=== PATIENT | male | born 1985 | race Caucasian/White ===

== ENCOUNTER 2016-11-29 18:48 | Emergency (ER) | payer OTHER ==
--- NOTE | 2016-11-29 19:54 | EDPHY ---
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 This on the volar aspect. Bleeding has been maintained with mild pressure. No sensory or motor deficits. No injury to the nail. Tetanus was last updated less than 2 years ago. [id number] pain at rest. No radiating pain. Improved with rest. No bleeding disorders. No gross contaminant.No other associated complaints or modifying factors. PRIOR ORTHO INJURIES: None ESTABLISHED ORTHOPEDIST: None REVIEW OF SYSTEMS: Ten systems reviewed and are negative unless otherwise noted in the HPI EXAMINATION General Appearance: Alert, no distress Head: normocephalic, atraumatic Eyes: Pupils equal and round, no conjunctival pallor or injection Respiratory: No dyspnea or retractions. No distress Cardiovascular: Pulses normal throughout. Symmetric radial pulses are 2+. Brisk cap refill Gastrointestinal: No distention Neurological: A&O, sensory symmetric, strength symmetric Skin: Warm and dry . There is a 2 cm laceration to the right index finger, volar aspect over the distal phalanx. Mild bleeding noted. No foreign body. Neurovascular and intact with brisk cap refill. Extremities: Tenderness over the right index finger laceration. There is full extensor and flexor retained, including superficial and profundus. No other abnormalities. MDM: 7:10pm Acute laceration to the right index finger tip. There is no involvement of the nail. There is no foreign body. There is no involvement of the tendon by examination and by range of motion. The digital block has been applied. We will irrigate and closed the wound with suture repair. He is resting comfortably in no acute distress. 7:50 p.m. wound has been anesthetized, irrigated and closed without complication. Wound care discussed including bacitracin daily, keep the wound covered at all times until sutures are removed. No submersion of the wound. Return for signs or symptoms of infection as discussed. Discharged home and return here in 7-10 days for suture repair. PROCEDURE: Digital Block Consent: Verbal Location: right index finger Anesthesia: 1% lidocaine plain, 0.25% Marcaine plain, 7 mLs Description: aseptic technique. After the base of the index finger metacarpal was cleaned with chlorhexidine, 7 mL of anesthesia as listed above or diffuse. Good anesthesia obtained. No bleeding. No complications. PROCEDURE: Finger laceration Consent: verbal Location: right index, distal phalanx, volar Length of repair: 1.5 cm Complexity: simple Layer involvement: single Anesthesia: digital block as above Irrigation: extensive Debridement: none Procedure description: after good anesthesia and irrigation, the wound was Explored and closed with 4, simple interrupted sutures. no foreign body in the wound bed. Good approximation of the wound margins. Good hemostasis. Suture/Staple material: 5-0 Prolene Wound care: routine as discussed Suture/Staple removal: return here in 7-10 days for suture removal. ED Precautions: Worsening pain. Erythema, edema, cyanosis, pallor, paresthesia or anesthesia. SUPERVISION: This patient was independently evaluated without the aide of supervising physician. - History Smoking Status: Never smoked - Objective Vital Signs: Initial Vital Signs Temperature (C) 97.9 F 11/29/16 18:50 Heart Rate 84 11/29/16 18:50 Respiratory Rate 16 11/29/16 18:50 Blood Pressure 143/68 H 11/29/16 18:50 O2 Sat (%) 98 11/29/16 18:50 Allergies/Adverse Reactions: No Known Allergies Allergy (Unverified 09/01/10 23:08) Home Medications: Medication Instructions Recorded LORAZEPAM 06/26/15 Cephalexin [Keflex (*)] 500 mg PO TID #21 cap 11/29/16 Departure - Departure Disposition: Home, Routine, Self-Care Clinical Impression: Laceration of index finger of right hand without complication Condition: Good Instructions: Laceration (ED), Care For Your Stitches (ED) Additional Instructions: Wound care as discussed. Follow up here in 7-10 days for suture removal. Return sooner for signs or symptoms of infection. Prescriptions: Cephalexin [Keflex (*)] 500 mg PO TID #21 cap
[2016-11-29] MEDS ORDERED: CEPHALEXIN 500MG PREPACK#4 BTL TAKEHOME ONE (19:59)
[2016-11-29 20:11] VITALS: PULSE 75
[2016-12-08 14:07] VITALS: BP 149/85; RESP 16; TEMP 98.8; O2SAT 98
== END 2016-11-29 20:11 | disposition home or self-care (01) ==
PROC: 0HQFXZZ Repair Right Hand Skin, External Approach (ICD-10-PCS; principal; 2016-11-29)
DX: S61.210A Laceration without foreign body of right index finger without damage to nail, initial encounter (principal); W27.0XXA Contact with workbench tool, initial encounter; Y92.69 Other specified industrial and construction area as the place of occurrence of the external cause; Y93.89 Activity, other specified